=== PATIENT | male | born 1975 | race Two or more races ===

== ENCOUNTER 2017-12-24 14:18 | Inpatient (IN) | payer MEDICAID ==
[~2017-12-24] VITALS: Ht 185.4 cm; Wt 158.8 kg
[2017-12-24] MEDS ORDERED: ALBUTEROL (0.083%) 2.5MG/3ML NEB HHN STA (14:51)
[2017-12-24] MEDS ORDERED: METHYLPREDNISOLONE SOD SUCC 125 MG/2 ML VIAL IV STA (14:51)
[2017-12-24 16:02] LABS: CHLORIDE 108 mEq/L (98-107)
[2017-12-24 16:07] LABS: EOSINOPHILS % 4.1 % (0.0-5.0); HEMATOCRIT. 47.3 % (42.0-52.0); HEMOGLOBIN. 15.8 g/dL (14.0-18.0); MEAN CORPUSCULAR HEMOGLOBIN 29.6 pg (28.0-32.0); MEAN CORPUSCULAR VOLUME 88.9 fL (80.0-94.0); MEAN PLATELET VOLUME 7.6 fl (7.4-10.4); MONOCYTES % 9.3 % (2.0-8.0); NEUTROPHILS % 66.6 % (40.0-76.0); PLATELET 263 x1000/uL (130-400); RED BLOOD CELL COUNT 5.33 mill/uL (4.7-6.1); RED CELL DISTRIBUTION WIDTH 14.2 % (11.6-14.6)
[2017-12-24] MEDS ORDERED: FUROSEMIDE 40MG/4ML VIAL IV ONE (16:30)
[2017-12-24] MEDS ORDERED: ENOXAPARIN 150MG/ML SYR SUBCUT ONE ×2 (16:30→19:00)
[2017-12-24] MEDS ORDERED: ASPIRIN 81MG TABLET PO ONE (16:30)
[2017-12-24] MEDS ORDERED: GUAIFENESIN 200MG/10ML SUGAR FREE UDC PO PRN (17:00)
[2017-12-24] MEDS ORDERED: LORAZEPAM 0.5MG TABLET PO PRN (17:00)
[2017-12-24] MEDS ORDERED: CLONIDINE 0.1MG TABLET PO PRN (17:00)
[2017-12-24] MEDS ORDERED: MAGNESIUM/ALUMINUM HYDROXIDE/SIMETHICONE 30ML UDC PO PRN (17:00)
[2017-12-24] MEDS ORDERED: ONDANSETRON HCL 4MG/2ML INJ IV PRN (17:00)
[2017-12-24] MEDS ORDERED: DOCUSATE SODIUM 100MG CAPSULE PO PRN (17:00)
[2017-12-24] MEDS ORDERED: IPRATROPIUM/ALBUTEROL 0.5-3(2.5)MG/3ML NEB INH PRN (17:00)
[2017-12-24] MEDS ORDERED: NITROGLYCERIN 0.4MG TABLET SL SL PRN (17:00)
[2017-12-24] MEDS ORDERED: ACETAMINOPHEN 325MG TABLET PO PRN (17:00)
[2017-12-24] MEDS ORDERED: KETOROLAC 15MG/ML VIAL IV PRN (17:14)
[2017-12-24 19:33] LABS: ETHANOL BLOOD < 10 mg/dL
[2017-12-24 19:36] LABS: HDL CHOLESTEROL 44 mg/dL (40-59); LDL CHOLESTEROL 113 mg/dL (5-100)
[2017-12-24] MEDS ORDERED: NA PHOS,M-B/NA PHOS,DI-BA ENEMA 118ML PR PRN (21:00)
[2017-12-24] MEDS ORDERED: ZOLPIDEM TARTRATE 5MG TABLET PO PRN (21:00)
[2017-12-24 22:21] VITALS: BP 129/89
[2017-12-25] MEDS: DILTIAZEM HCL 60MG TABLET PO SCH ×2 (06:00)
[2017-12-25 06:46] LABS: CREATINE KINASE MB FRACTION 3.9 ng/mL (0.5-3.6)
[2017-12-25] MEDS ORDERED: ASPIRIN 325MG EC TABLET PO SCH (09:00)
[2017-12-25] MEDS ORDERED: FUROSEMIDE 40MG/4ML VIAL IVP SCH (09:00)
[2017-12-25] MEDS ORDERED: FAMOTIDINE 20MG TABLET PO SCH (09:00)
[2017-12-25] MEDS ORDERED: RIVAROXABAN 20 MG TABLET PO SCH (17:00)
== END 2017-12-25 12:39 | disposition home or self-care (01) | DRG 133 ==
LOC: ER 14:56 → 7WST 16:46 → EDBEDREQ 16:50 → EDBEDREQTM 16:50 → EDBEDREQ 17:02 → ENRESERV 17:42
PROVIDERS: ADMIT Internal Medicine; ATTEND Internal Medicine
DX: J96.00 Acute respiratory failure, unspecified whether with hypoxia or hypercapnia (principal); N17.0 Acute kidney failure with tubular necrosis; I50.43 Acute on chronic combined systolic (congestive) and diastolic (congestive) heart failure; E46 Unspecified protein-calorie malnutrition; I48.91 Unspecified atrial fibrillation; F17.210 Nicotine dependence, cigarettes, uncomplicated; E66.01 Morbid (severe) obesity due to excess calories; I11.0 Hypertensive heart disease with heart failure; I50.9 Heart failure, unspecified; J44.9 Chronic obstructive pulmonary disease, unspecified; Z79.01 Long term (current) use of anticoagulants; Z68.42 Body mass index [BMI] 45.0-49.9, adult
CPT/HCPCS: 36415; 71045; 80061; 82550; 82553; 83036; 83880; 84484; 93005; 93306; 93970; 94640; 96372; 96374; 96375; 99291; G0482; J1650; J1940; J2930; J7611; J7620

== ENCOUNTER 2017-12-26 17:53 | Inpatient (IN) | payer MEDICAID ==
[~2017-12-26] VITALS: Ht 177.8 cm; Wt 177.8 kg
[2017-12-26 18:23] LABS: BG BASE EXCESS 1.3 mmol/L (-2.0-2.0); BG BILEVEL POS AIRWAY PRESSURE 18/5; BG CARBOXYHEMOGLOBIN 3.5 % (0.5-1.5); BG DEOXYHEMOGLOBIN 0.2 % (0.0-5.0); BG HCO3 ACT 27.6 mmol/L (22.0-26.0); BG METHEMOGLOBIN 0.5 % (0.0-1.5); BG OXYGEN SATURATION 99.8 % (92.0-98.5); BG OXYHEMOGLOBIN 95.8 % (94.0-97.0); BG PCO2 49.1 mmHg (35.0-45.0); BG PH 7.368 (7.350-7.450); BG PO2 580.6 mmHg (75.0-100.0); BG SAMPLE SITE RIGHT RADIAL; BG TOTAL HEMOGLOBIN 17.8 g/dL (12.0-18.0); BG VENT MODE MASK - BIPAP; BG VENT RATE 16 set
[2017-12-26 18:42] LABS: CHLORIDE 104 mEq/L (98-107); PROTHROMBIN TIME 10.2 sec (9.1-11.1)
[2017-12-26 18:43] LABS: BASOPHILS % 0.9 % (0.0-2.0); EOSINOPHILS % 0.5 % (0.0-5.0); HEMATOCRIT. 51.8 % (42.0-52.0); HEMOGLOBIN. 17.5 g/dL (14.0-18.0); LYMPHOCYTES % 20.1 % (20.0-50.0); MEAN CORPUSCULAR HEMOGLOBIN 29.9 pg (28.0-32.0); MEAN CORPUSCULAR VOLUME 88.5 fL (80.0-94.0); MEAN PLATELET VOLUME 7.8 fl (7.4-10.4); MONOCYTES % 7.5 % (2.0-8.0); PLATELET 312 x1000/uL (130-400); RED BLOOD CELL COUNT 5.85 mill/uL (4.7-6.1); RED CELL DISTRIBUTION WIDTH 14.4 % (11.6-14.6)
[2017-12-26] MEDS ORDERED: ASPIRIN 81MG TABLET PO ONE (19:15)
[2017-12-26] MEDS ORDERED: FUROSEMIDE 40MG/4ML VIAL IVP ONE (19:15)
[2017-12-26] MEDS ORDERED: ACETAMINOPHEN 325MG TABLET PO PRN (22:00)
[2017-12-26] MEDS ORDERED: DIPHENHYDRAMINE 50MG/ML VIAL IV PRN (22:00)
[2017-12-26] MEDS ORDERED: LORAZEPAM 0.5MG TABLET PO PRN (22:00)
[2017-12-26] MEDS ORDERED: KETOROLAC 15MG/ML VIAL IV PRN (22:00)
[2017-12-26] MEDS ORDERED: CLONIDINE 0.1MG TABLET PO PRN (22:00)
[2017-12-26] MEDS ORDERED: IPRATROPIUM/ALBUTEROL 0.5-3(2.5)MG/3ML NEB INH PRN (22:00)
[2017-12-26] MEDS ORDERED: ONDANSETRON HCL 4MG/2ML INJ IV PRN (22:00)
[2017-12-26] MEDS ORDERED: MAGNESIUM/ALUMINUM HYDROXIDE/SIMETHICONE 30ML UDC PO PRN (22:00)
[2017-12-26 23:12] VITALS: BP 155/90
[2017-12-27] VITALS (8 sets, daily range): BP systolic 119–154; BP diastolic 84–91
[2017-12-27] MEDS: DILTIAZEM HCL 60MG TABLET PO SCH ×5 (00:55→22:47)
[2017-12-27] MEDS: DEXT 5%/0.45% NACL 1000ML 1,000 ML IV SCH ×2 (00:55→10:00)
[2017-12-27] MEDS ORDERED: RIVA20TA PO (04:07)
[2017-12-27] MEDS: SODIUM CHLORIDE 0.9% INJ 3ML FLUSH IVF SCH ×3 (05:59→22:00)
[2017-12-27 06:20] LABS: BASOPHILS % 0.8 % (0.0-2.0); EOSINOPHILS % 1.5 % (0.0-5.0); HEMATOCRIT. 48.9 % (42.0-52.0); HEMOGLOBIN. 16.4 g/dL (14.0-18.0); LYMPHOCYTES % 26.1 % (20.0-50.0); MEAN CORPUSCULAR HEMOGLOBIN 29.9 pg (28.0-32.0); MEAN PLATELET VOLUME 7.6 fl (7.4-10.4); MONOCYTES % 9.6 % (2.0-8.0); PLATELET 280 x1000/uL (130-400); RED BLOOD CELL COUNT 5.49 mill/uL (4.7-6.1); RED CELL DISTRIBUTION WIDTH 14.4 % (11.6-14.6)
[2017-12-27] MEDS: FAMOTIDINE 20MG TABLET PO SCH ×2 (09:00→22:47)
[2017-12-27] MEDS: RIVAROXABAN 20 MG TABLET PO SCH (17:00)
[2017-12-27] MEDS: IPRATROPIUM/ALBUTEROL 0.5-3(2.5)MG/3ML NEB HHN SCH (20:20)
[2017-12-28] VITALS (11 sets, daily range): BP systolic 120–186; BP diastolic 61–112
[2017-12-28] MEDS: IPRATROPIUM/ALBUTEROL 0.5-3(2.5)MG/3ML NEB HHN SCH ×4 (01:11→20:21)
[2017-12-28 03:44] LABS: CLARITY URINE CLEAR (CLEAR); COLOR URINE YELLOW (YELLOW); KETONES URINE NEGATIVE (NEGATIVE); LEUKOCYTE ESTERASE URINE NEGATIVE (NEGATIVE); NITRITE URINE NEGATIVE (NEGATIVE); OCCULT BLOOD URINE TRACE (NEGATIVE); PH URINE 5.5 (4.5-8.0); PROTEIN URINE 3+ (NEGATIVE); SPECIFIC GRAVITY URINE 1.015 (1.005-1.030); UROBILINOGEN URINE 0.2 E.U./dL (0.2-1.0)
[2017-12-28 04:10] LABS: *AMPHETAMINES SCREEN URINE NEGATIVE (NEGATIVE); *BARBITURATES SCREEN URINE NEGATIVE (NEGATIVE); *COCAINE SCREEN URINE NEGATIVE (NEGATIVE); CANNABINOID URINE SCREEN PRESUMTIVE POSITIVE (NEGATIVE); METHADONE URINE SCREEN NEGATIVE (NEGATIVE); OPIATES URINE SCREEN NEGATIVE (NEGATIVE); PHENCYCLIDINE URINE SCREEN NEGATIVE (NEGATIVE)
[2017-12-28 04:11] LABS: *BENZODIAZEPINES SCREEN URINE NEGATIVE (NEGATIVE)
[2017-12-28] MEDS: DILTIAZEM HCL 60MG TABLET PO SCH ×4 (05:56→23:55)
[2017-12-28] MEDS: SODIUM CHLORIDE 0.9% INJ 3ML FLUSH IVF SCH ×4 (05:56→20:44)
[2017-12-28] MEDS: FAMOTIDINE 20MG TABLET PO SCH ×2 (08:08→20:44)
[2017-12-28] MEDS: RIVAROXABAN 20 MG TABLET PO SCH (18:17)
[2017-12-29 01:04] VITALS: BP 131/81
[2017-12-29] MEDS: DILTIAZEM HCL 60MG TABLET PO SCH ×3 (01:10→11:52)
[2017-12-29] MEDS: IPRATROPIUM/ALBUTEROL 0.5-3(2.5)MG/3ML NEB HHN SCH (01:46)
[2017-12-29 05:30] VITALS: BP 121/71
[2017-12-29] MEDS: SODIUM CHLORIDE 0.9% INJ 3ML FLUSH IVF SCH ×2 (05:32→13:57)
[2017-12-29] MEDS ORDERED: POTASSIUM CHLORIDE 20MEQ TABLET SR PO SCH (09:00)
[2017-12-29] MEDS: FAMOTIDINE 20MG TABLET PO SCH (09:23)
[2017-12-29 10:00] VITALS: BP 140/82
[2017-12-29 12:00] VITALS: BP 133/85
[2017-12-29] MEDS ORDERED: GUAIFENESIN 600MG ER TABLET PO SCH (12:30)
[2017-12-29 14:35] VITALS: BP 133/65
== END 2017-12-29 15:55 | disposition home or self-care (01) | DRG 140 ==
LOC: ER 17:53 → 5EST 19:18 → EDBEDREQ 19:42 → EDBEDREQTM 19:42 → EDBEDREQSVC 19:42
PROVIDERS: ADMIT Internal Medicine; ATTEND Internal Medicine
PROC: 5A09457 Assistance with Respiratory Ventilation, 24-96 Consecutive Hours, Continuous Positive Airway Pressure (ICD-10-PCS; principal; 2017-12-26)
PROC: 5A09357 Assistance with Respiratory Ventilation, Less than 24 Consecutive Hours, Continuous Positive Airway Pressure (ICD-10-PCS; 2017-12-28)
PROC: 5A09357 Assistance with Respiratory Ventilation, Less than 24 Consecutive Hours, Continuous Positive Airway Pressure (ICD-10-PCS; 2017-12-29)
DX: J44.1 Chronic obstructive pulmonary disease with (acute) exacerbation (principal); J96.00 Acute respiratory failure, unspecified whether with hypoxia or hypercapnia; I50.33 Acute on chronic diastolic (congestive) heart failure; N17.9 Acute kidney failure, unspecified; I13.0 Hypertensive heart and chronic kidney disease with heart failure and stage 1 through stage 4 chronic kidney disease, or unspecified chronic kidney disease; E66.2 Morbid (severe) obesity with alveolar hypoventilation; N18.9 Chronic kidney disease, unspecified; F12.90 Cannabis use, unspecified, uncomplicated; I48.92 Unspecified atrial flutter; I48.2 Chronic atrial fibrillation; M10.9 Gout, unspecified; Z79.01 Long term (current) use of anticoagulants; Z91.14 Patient's other noncompliance with medication regimen; Z87.891 Personal history of nicotine dependence
CPT/HCPCS: 36415; 36600; 71045; 80048; 80305; 82375; 82805; 83605; 83735; 83880; 84484; 84550; 93005; 94640; 94660; 96374; 99291; J1940; J7620

== ENCOUNTER 2018-03-02 15:17 | Inpatient (IN) | payer MEDICAID ==
[~2018-03-02] VITALS: Ht 365.8 cm; Wt 181.0 kg
[~2018-03-02 15:17] MED LIST: RIVA20TA PO
[2018-03-02] MEDS ORDERED: IPRATROPIUM BROMIDE (0.02%) 0.5MG/2.5ML NEB HHN STA (15:34)
[2018-03-02] MEDS ORDERED: ALBUTEROL (0.083%) 2.5MG/3ML NEB HHN STA (15:34)
[2018-03-02 16:23] LABS: EOSINOPHILS % 3.4 % (0.0-5.0); HEMATOCRIT. 52.7 % (42.0-52.0); HEMOGLOBIN. 17.1 g/dL (14.0-18.0); LYMPHOCYTES % 17.5 % (20.0-50.0); MEAN CORPUSCULAR HEMOGLOBIN 29.1 pg (28.0-32.0); MEAN CORPUSCULAR VOLUME 89.6 fL (80.0-94.0); MEAN PLATELET VOLUME 7.8 fl (7.4-10.4); MONOCYTES % 9.5 % (2.0-8.0); NEUTROPHILS % 68.6 % (40.0-76.0); PLATELET 230 x1000/uL (130-400); RED BLOOD CELL COUNT 5.88 mill/uL (4.7-6.1); RED CELL DISTRIBUTION WIDTH 14.2 % (11.6-14.6)
[2018-03-02 16:28] LABS: CHLORIDE 110 mEq/L (98-107)
[2018-03-02] MEDS ORDERED: PREDNISONE 20MG TABLET PO ONE (16:30)
[2018-03-02] MEDS ORDERED: LORAZEPAM 2MG/ML CPJ IV ONE (19:45)
[2018-03-03] MEDS: IPRATROPIUM/ALBUTEROL 0.5-3(2.5)MG/3ML NEB HHN SCH (00:45)
[2018-03-03] MEDS ORDERED: IPRATROPIUM/ALBUTEROL 0.5-3(2.5)MG/3ML NEB HHN PRN (09:00)
[2018-03-03] MEDS ORDERED: GUAIFENESIN-DM 200MG-20MG/10ML UDC PO PRN (09:00)
[2018-03-03 09:25] VITALS: BP 118/72
[2018-03-03 11:08] LABS: BASOPHILS % 0.5 % (0.0-2.0); EOSINOPHILS % 0.5 % (0.0-5.0); HEMATOCRIT. 51.3 % (42.0-52.0); HEMOGLOBIN. 16.8 g/dL (14.0-18.0); LYMPHOCYTES % 13.1 % (20.0-50.0); MEAN CORPUSCULAR HEMOGLOBIN 29.2 pg (28.0-32.0); MEAN PLATELET VOLUME 7.6 fl (7.4-10.4); MONOCYTES % 5.2 % (2.0-8.0); NEUTROPHILS % 80.7 % (40.0-76.0); PLATELET 230 x1000/uL (130-400); RED BLOOD CELL COUNT 5.77 mill/uL (4.7-6.1); RED CELL DISTRIBUTION WIDTH 14.1 % (11.6-14.6)
[2018-03-03] MEDS: METHYLPREDNISOLONE SOD SUCC 40 MG/ML VIAL IV SCH ×2 (11:59→18:00)
[2018-03-03] MEDS ORDERED: MONTELUKAST SODIUM 10MG TABLET PO SCH (17:00)
[2018-03-03] MEDS ORDERED: RIVAROXABAN 20 MG TABLET PO SCH (17:00)
[2018-03-03] MEDS: NICOTINE 7MG PATCH TD SCH (17:15)
[2018-03-03] MEDS ORDERED: ACETAMINOPHEN 325MG TABLET PO PRN (17:15)
[2018-03-03] MEDS ORDERED: ONDANSETRON HCL 4MG/2ML INJ IV PRN (17:15)
[2018-03-03] MEDS: AZITHROMYCIN 500 MG TABLET PO SCH (18:24)
[2018-03-04 00:22] VITALS: BP 130/89
[2018-03-04] MEDS: METHYLPREDNISOLONE SOD SUCC 40 MG/ML VIAL IV SCH ×2 (02:00→10:00)
[2018-03-04 04:00] VITALS: BP 122/90
[2018-03-04] MEDS: IPRATROPIUM/ALBUTEROL 0.5-3(2.5)MG/3ML NEB HHN SCH (08:47)
[2018-03-04] MEDS: AZITHROMYCIN 500 MG TABLET PO SCH (09:00)
[2018-03-04] MEDS: NICOTINE 7MG PATCH TD SCH (09:00)
[2018-03-05] MEDS ORDERED: LURA120T MT (18:30)
[2018-03-05] MEDS ORDERED: TRAZ-213 MT (18:32)
[2018-03-05] MEDS ORDERED: METO-396 MT (18:32)
[2018-03-05] MEDS ORDERED: FURO-151 MT (18:32)
[2018-03-05] MEDS ORDERED: ASPI-1159 MT (18:32)
== END 2018-03-04 11:37 | disposition home or self-care (01) | DRG 133 ==
LOC: ER 15:17 → 6WST 19:36 → EDBEDREQTM 19:40 → EDBEDREQ 19:40 → ENRESERV 03-03 08:52
PROVIDERS: ADMIT Internal Medicine; ATTEND Internal Medicine
DX: J96.00 Acute respiratory failure, unspecified whether with hypoxia or hypercapnia (principal); E87.8 Other disorders of electrolyte and fluid balance, not elsewhere classified; J45.901 Unspecified asthma with (acute) exacerbation; E44.1 Mild protein-calorie malnutrition; E66.01 Morbid (severe) obesity due to excess calories; I13.0 Hypertensive heart and chronic kidney disease with heart failure and stage 1 through stage 4 chronic kidney disease, or unspecified chronic kidney disease; I50.9 Heart failure, unspecified; I48.91 Unspecified atrial fibrillation; I25.10 Atherosclerotic heart disease of native coronary artery without angina pectoris; Z79.01 Long term (current) use of anticoagulants; Z95.5 Presence of coronary angioplasty implant and graft; N18.3 Chronic kidney disease, stage 3 (moderate); Z71.6 Tobacco abuse counseling; Z71.3 Dietary counseling and surveillance; F17.200 Nicotine dependence, unspecified, uncomplicated; Z68.1 Body mass index [BMI] 19.9 or less, adult
CPT/HCPCS: 36415; 71045; 80048; 83880; 84484; 93005; 94640; 94660; 99285; J2060; J2920; J7512; J7611; J7620

== ENCOUNTER 2018-03-05 14:23 | Inpatient (IN) | payer MEDICAID ==
[~2018-03-05] VITALS: Ht 182.9 cm; Wt 181.0 kg
[2018-03-05] MEDS ORDERED: METHYLPREDNISOLONE SOD SUCC 125 MG/2 ML VIAL IV STA (14:26)
[2018-03-05] MEDS ORDERED: LORAZEPAM 2MG/ML CPJ IV ONE (14:30)
[2018-03-05] MEDS ORDERED: ASPIRIN 81MG TABLET PO ONE (14:30)
[2018-03-05] MEDS ORDERED: LEVOFLOXACIN 750MG PREMIX 150 ML IV ONE (14:30)
[2018-03-05] MEDS ORDERED: IPRATROPIUM/ALBUTEROL 0.5-3(2.5)MG/3ML NEB HHN ONE (14:30)
[2018-03-05 15:26] LABS: BASOPHILS % 1.1 % (0.0-2.0); EOSINOPHILS % 1.6 % (0.0-5.0); HEMATOCRIT. 52.3 % (42.0-52.0); HEMOGLOBIN. 17.1 g/dL (14.0-18.0); LYMPHOCYTES % 23.5 % (20.0-50.0); MEAN CORPUSCULAR HEMOGLOBIN 29.4 pg (28.0-32.0); MEAN CORPUSCULAR VOLUME 89.6 fL (80.0-94.0); MEAN PLATELET VOLUME 7.9 fl (7.4-10.4); MONOCYTES % 9.1 % (2.0-8.0); NEUTROPHILS % 64.7 % (40.0-76.0); PLATELET 249 x1000/uL (130-400); RED BLOOD CELL COUNT 5.84 mill/uL (4.7-6.1)
[2018-03-05 15:34] LABS: CHLORIDE 108 mEq/L (98-107)
[2018-03-05] MEDS ORDERED: LIDOCAINE HCL/PF 1% 2ML VIAL ONE (15:35)
[2018-03-05 15:37] LABS: BG BASE EXCESS -2.9 mmol/L (-2.0-2.0); BG BILEVEL POS AIRWAY PRESSURE 15/4; BG CARBOXYHEMOGLOBIN 2.9 % (0.5-1.5); BG DEOXYHEMOGLOBIN 0.3 % (0.0-5.0); BG HCO3 ACT 23.1 mmol/L (22.0-26.0); BG METHEMOGLOBIN 0.4 % (0.0-1.5); BG OXYGEN SATURATION 99.7 % (92.0-98.5); BG OXYHEMOGLOBIN 96.4 % (94.0-97.0); BG PCO2 44.8 mmHg (35.0-45.0); BG PH 7.331 (7.350-7.450); BG SAMPLE SITE RIGHT RADIAL; BG TOTAL HEMOGLOBIN 16.7 g/dL (12.0-18.0); BG VENT MODE MASK - BIPAP; BG VENT RATE 14 set
[2018-03-05 15:39] LABS: ETHANOL BLOOD < 10 mg/dL
[2018-03-05 15:44] LABS: CREATINE KINASE 251 IU/L (39-308)
[2018-03-05 15:55] LABS: CLARITY URINE CLEAR (CLEAR); COLOR URINE YELLOW (YELLOW); KETONES URINE NEGATIVE (NEGATIVE); LEUKOCYTE ESTERASE URINE NEGATIVE (NEGATIVE); NITRITE URINE NEGATIVE (NEGATIVE); OCCULT BLOOD URINE TRACE (NEGATIVE); PROTEIN URINE 2+ (NEGATIVE); SPECIFIC GRAVITY URINE 1.009 (1.005-1.030); UROBILINOGEN URINE 0.2 E.U./dL (0.2-1.0)
[2018-03-05 16:17] LABS: *AMPHETAMINES SCREEN URINE NEGATIVE (NEGATIVE); *BARBITURATES SCREEN URINE NEGATIVE (NEGATIVE); *BENZODIAZEPINES SCREEN URINE NEGATIVE (NEGATIVE); *COCAINE SCREEN URINE NEGATIVE (NEGATIVE)
[2018-03-05 16:18] LABS: CANNABINOID URINE SCREEN PRESUMTIVE POSITIVE (NEGATIVE); METHADONE URINE SCREEN NEGATIVE (NEGATIVE); OPIATES URINE SCREEN NEGATIVE (NEGATIVE); PHENCYCLIDINE URINE SCREEN NEGATIVE (NEGATIVE)
[2018-03-05 16:43] LABS: INR 1.1; PARTIAL THROMBOPLASTIN TIME 33.1 sec (23.4-31.0); PROTHROMBIN TIME 10.8 sec (9.1-11.1)
[2018-03-05 18:00] VITALS: BP 141/83
[2018-03-05] MEDS ORDERED: LURA120T MT (18:30)
[2018-03-05] MEDS ORDERED: TRAZ-213 MT (18:32)
[2018-03-05] MEDS ORDERED: ASPI-1159 MT (18:32)
[2018-03-05] MEDS ORDERED: METO-396 MT (18:32)
[2018-03-05] MEDS ORDERED: FURO-151 MT (18:32)
[2018-03-05 20:00] VITALS: BP 124/75
[2018-03-05] MEDS ORDERED: METHYLPREDNISOLONE SOD SUCC 40 MG/ML VIAL IV SCH (21:15)
[2018-03-05] MEDS ORDERED: IPRATROPIUM/ALBUTEROL 0.5-3(2.5)MG/3ML NEB HHN PRN ×2 (21:15→21:47)
[2018-03-05] MEDS ORDERED: ALBUTEROL (0.083%) 2.5MG/3ML NEB HHN PRN (21:30)
[2018-03-05] MEDS: TRAZODONE HCL 100MG TABLET PO SCH (21:57)
[2018-03-05] MEDS: METHYLPREDNISOLONE SOD SUCC 40 MG/ML VIAL IV SCH (21:58)
[2018-03-05] MEDS: LORAZEPAM 2MG/ML CPJ IM PRN (21:59)
[2018-03-05] MEDS ORDERED: NON FORMULARY PATIENT HOME MED XX SCH ×2 (22:00)
[2018-03-06] MEDS ORDERED: ALBUTEROL (0.083%) 2.5MG/3ML NEB HHN SCH
[2018-03-06] MEDS: BUDESONIDE 0.5MG/2ML NEB HHN SCH ×2 (01:15→01:41)
[2018-03-06] MEDS: IPRATROPIUM/ALBUTEROL 0.5-3(2.5)MG/3ML NEB HHN SCH ×5 (01:15→20:50)
[2018-03-06 04:47] VITALS: BP 122/75
[2018-03-06] MEDS: METHYLPREDNISOLONE SOD SUCC 40 MG/ML VIAL IV SCH ×3 (06:01→22:13)
[2018-03-06] MEDS: METOPROLOL TARTRATE 25MG TABLET PO SCH (08:49)
[2018-03-06] MEDS ORDERED: FLUTICASONE/VILANTEROL 200-25 BLST.W.DEV ORI SCH (09:00)
[2018-03-06] MEDS ORDERED: FUROSEMIDE 40MG TABLET PO SCH (09:00)
[2018-03-06] MEDS: LORAZEPAM 2MG/ML CPJ IM PRN ×3 (09:12→20:40)
[2018-03-06] MEDS ORDERED: CLONIDINE 0.1MG TABLET PO PRN (13:15)
[2018-03-06] MEDS ORDERED: GUAIFENESIN 200MG/10ML SUGAR FREE UDC PO PRN (13:15)
[2018-03-06] MEDS ORDERED: ACETAMINOPHEN 325MG TABLET PO PRN (13:15)
[2018-03-06] MEDS ORDERED: DOCUSATE SODIUM 100MG CAPSULE PO PRN (13:15)
[2018-03-06] MEDS ORDERED: IPRATROPIUM/ALBUTEROL 0.5-3(2.5)MG/3ML NEB INH PRN (13:15)
[2018-03-06] MEDS ORDERED: MAGNESIUM/ALUMINUM HYDROXIDE/SIMETHICONE 30ML UDC PO PRN (13:15)
[2018-03-06] MEDS ORDERED: ONDANSETRON HCL 4MG/2ML INJ IV PRN (13:15)
[2018-03-06] MEDS: NICOTINE 14MG PATCH TD SCH (14:13)
[2018-03-06] MEDS: GUAIFENESIN 600MG ER TABLET PO SCH ×2 (14:14→22:16)
[2018-03-06] MEDS: CEFTRIAXONE 1 G PREMIX 50 ML IV SCH (15:00)
[2018-03-06] MEDS: LEVOFLOXACIN 500MG PREMIX 100 ML IV SCH (15:00)
[2018-03-06] MEDS: RIVAROXABAN 20 MG TABLET PO SCH (17:19)
[2018-03-06 20:00] VITALS: BP 118/79
[2018-03-06] MEDS: TRAZODONE HCL 100MG TABLET PO SCH (20:40)
[2018-03-06] MEDS ORDERED: TRAZODONE HCL 100MG TABLET PO SCH (21:00)
[2018-03-07] MEDS: IPRATROPIUM/ALBUTEROL 0.5-3(2.5)MG/3ML NEB HHN SCH ×6 (00:58→21:04)
[2018-03-07] MEDS: LORAZEPAM 2MG/ML CPJ IM PRN ×2 (03:47→14:19)
[2018-03-07 04:00] VITALS: BP 119/87
[2018-03-07] MEDS: METHYLPREDNISOLONE SOD SUCC 40 MG/ML VIAL IV SCH ×2 (06:11→17:05)
[2018-03-07] MEDS ORDERED: HALOPERIDOL LACTATE 5MG/ML VIAL IM PRN (06:45)
[2018-03-07 07:56] LABS: HEMATOCRIT. 49.3 % (42.0-52.0); HEMOGLOBIN. 16.2 g/dL (14.0-18.0); MEAN CORPUSCULAR HEMOGLOBIN 29.3 pg (28.0-32.0); MEAN CORPUSCULAR VOLUME 89.4 fL (80.0-94.0); MEAN PLATELET VOLUME 7.8 fl (7.4-10.4); PLATELET 244 x1000/uL (130-400); RED BLOOD CELL COUNT 5.51 mill/uL (4.7-6.1)
[2018-03-07] MEDS: NICOTINE 14MG PATCH TD SCH (08:39)
[2018-03-07] MEDS: METOPROLOL TARTRATE 25MG TABLET PO SCH (08:39)
[2018-03-07] MEDS: GUAIFENESIN 600MG ER TABLET PO SCH ×2 (08:41→21:33)
[2018-03-07] MEDS ORDERED: FUROSEMIDE 40MG/4ML VIAL IV SCH (09:00)
[2018-03-07] MEDS: FUROSEMIDE 40MG/4ML VIAL IV SCH (10:46)
[2018-03-07 10:53] LABS: CHLORIDE 107 mEq/L (98-107)
[2018-03-07 11:05] LABS: HDL CHOLESTEROL 46 mg/dL (40-59); LDL CHOLESTEROL 97 mg/dL (5-100)
[2018-03-07 11:07] LABS: T4 FREE 1.41 ng/dL (0.76-1.46)
[2018-03-07 12:15] VITALS: BP 116/84
[2018-03-07] MEDS: CEFTRIAXONE 1 G PREMIX 50 ML IV SCH (15:00)
[2018-03-07] MEDS: LEVOFLOXACIN 500MG PREMIX 100 ML IV SCH (15:57)
[2018-03-07 16:07] LABS: PLATELET ESTIMATE NORMAL
[2018-03-07 16:20] VITALS: BP 114/80
[2018-03-07] MEDS: RIVAROXABAN 20 MG TABLET PO SCH (17:05)
[2018-03-07 20:00] VITALS: BP 133/95
[2018-03-07] MEDS: TRAZODONE HCL 100MG TABLET PO SCH (21:33)
[2018-03-08] MEDS: IPRATROPIUM/ALBUTEROL 0.5-3(2.5)MG/3ML NEB HHN SCH ×4 (01:02→11:57)
[2018-03-08 04:00] VITALS: BP 104/71
[2018-03-08 07:27] LABS: HEMATOCRIT. 49.5 % (42.0-52.0); HEMOGLOBIN. 16.1 g/dL (14.0-18.0); MEAN CORPUSCULAR HEMOGLOBIN 29.2 pg (28.0-32.0); MEAN CORPUSCULAR VOLUME 89.6 fL (80.0-94.0); PLATELET 227 x1000/uL (130-400); RED BLOOD CELL COUNT 5.52 mill/uL (4.7-6.1)
[2018-03-08 08:00] VITALS: BP 180/96
[2018-03-08] MEDS: METHYLPREDNISOLONE SOD SUCC 40 MG/ML VIAL IV SCH (09:00)
[2018-03-08] MEDS: FUROSEMIDE 40MG/4ML VIAL IV SCH (09:00)
[2018-03-08] MEDS: NICOTINE 14MG PATCH TD SCH (09:00)
[2018-03-08] MEDS: GUAIFENESIN 600MG ER TABLET PO SCH (09:45)
[2018-03-08 11:05] LABS: CHLORIDE 104 mEq/L (98-107)
[2018-03-08 11:20] LABS: AMYLASE 142 IU/L (25-115)
[2018-03-08 11:25] LABS: PHOSPHORUS 4.9 mg/dL (2.5-4.9)
[2018-03-08 12:00] VITALS: BP 127/81
[2018-03-08 13:55] VITALS: BP 127/81
[2018-03-08 17:36] LABS: PLATELET ESTIMATE NORMAL
== END 2018-03-08 14:05 | disposition home or self-care (01) | DRG 194 ==
LOC: ER 14:30 → 5WST 15:43 → EDBEDREQ 15:44 → ENRESERV 16:57
PROVIDERS: ADMIT Internal Medicine; ATTEND Internal Medicine
PROC: 5A09357 Assistance with Respiratory Ventilation, Less than 24 Consecutive Hours, Continuous Positive Airway Pressure (ICD-10-PCS; principal; 2018-03-05)
PROC: 5A09357 Assistance with Respiratory Ventilation, Less than 24 Consecutive Hours, Continuous Positive Airway Pressure (ICD-10-PCS; 2018-03-06)
PROC: 5A09357 Assistance with Respiratory Ventilation, Less than 24 Consecutive Hours, Continuous Positive Airway Pressure (ICD-10-PCS; 2018-03-07)
PROC: 5A09357 Assistance with Respiratory Ventilation, Less than 24 Consecutive Hours, Continuous Positive Airway Pressure (ICD-10-PCS; 2018-03-08)
DX: I13.0 Hypertensive heart and chronic kidney disease with heart failure and stage 1 through stage 4 chronic kidney disease, or unspecified chronic kidney disease (principal); J96.20 Acute and chronic respiratory failure, unspecified whether with hypoxia or hypercapnia; K85.90 Acute pancreatitis without necrosis or infection, unspecified; I27.20 Pulmonary hypertension, unspecified; N17.9 Acute kidney failure, unspecified; J44.1 Chronic obstructive pulmonary disease with (acute) exacerbation; J45.901 Unspecified asthma with (acute) exacerbation; E66.2 Morbid (severe) obesity with alveolar hypoventilation; N18.3 Chronic kidney disease, stage 3 (moderate); K76.0 Fatty (change of) liver, not elsewhere classified; I48.92 Unspecified atrial flutter; I48.2 Chronic atrial fibrillation; I50.43 Acute on chronic combined systolic (congestive) and diastolic (congestive) heart failure; N39.0 Urinary tract infection, site not specified; F17.210 Nicotine dependence, cigarettes, uncomplicated; F12.90 Cannabis use, unspecified, uncomplicated; M10.9 Gout, unspecified; I25.118 Atherosclerotic heart disease of native coronary artery with other forms of angina pectoris; J06.9 Acute upper respiratory infection, unspecified; Z95.5 Presence of coronary angioplasty implant and graft; Z91.19 Patient's noncompliance with other medical treatment and regimen; Z71.6 Tobacco abuse counseling; Z71.3 Dietary counseling and surveillance
CPT/HCPCS: 36415; 36600; 71045; 76700; 80061; 80305; 82150; 82375; 82550; 82805; 83605; 83735; 83880; 84100; 84439; 84443; 84484; 84550; 93005; 93306; 93970; 96365; 96375; 99291; C1893; G0482; J0696; J1630; J1940; J1956; J2060; J2920; J2930; J3490; J7050; J7620; J7626

== ENCOUNTER 2018-03-24 19:22 | Emergency (ER) | payer MEDICAID ==
[~2018-03-24] VITALS: Ht 177.8 cm; Wt 146.0 kg
[~2018-03-24 19:22] MED LIST changes: +ASPI-1159 MT; +FURO-151 MT; +LURA120T MT; +METO-396 MT; +TRAZ-213 MT
[2018-03-24 19:40] VITALS: BP 115/72
== END 2018-03-24 22:45 | disposition left against medical advice (07) ==
LOC: ER 19:22
DX: Z53.21 Procedure and treatment not carried out due to patient leaving prior to being seen by health care provider (principal)

== ENCOUNTER 2018-04-06 10:32 | Inpatient (IN) | payer MEDICAID ==
[~2018-04-06] VITALS: Ht 185.4 cm; Wt 185.5 kg
[2018-04-06 11:34] LABS: HEMOGLOBIN. 11.9 g/dL (14.0-18.0); MEAN CORPUSCULAR HEMOGLOBIN 29.6 pg (28.0-32.0); MEAN CORPUSCULAR VOLUME 89.6 fL (80.0-94.0); MEAN PLATELET VOLUME 7.6 fl (7.4-10.4); PLATELET 232 x1000/uL (130-400); RED BLOOD CELL COUNT 4.01 mill/uL (4.7-6.1); RED CELL DISTRIBUTION WIDTH 14.2 % (11.6-14.6)
[2018-04-06 11:39] LABS: CHLORIDE 111 mEq/L (98-107)
[2018-04-06 12:55] LABS: PLATELET ESTIMATE NORMAL
[2018-04-06] MEDS ORDERED: VANCOMYCIN 1 G PREMIX 200 ML IV ONE (13:00)
[2018-04-06] MEDS ORDERED: PIPERACILLIN/TAZ 3.375G PREMIX 50 ML IV ONE (13:00)
[2018-04-06 13:57] LABS: CLARITY URINE CLEAR (CLEAR); COLOR URINE YELLOW (YELLOW); KETONES URINE NEGATIVE (NEGATIVE); LEUKOCYTE ESTERASE URINE NEGATIVE (NEGATIVE); NITRITE URINE NEGATIVE (NEGATIVE); OCCULT BLOOD URINE NEGATIVE (NEGATIVE); PROTEIN URINE NEGATIVE (NEGATIVE); UROBILINOGEN URINE 0.2 E.U./dL (0.2-1.0)
[2018-04-06] MEDS ORDERED: SODIUM CHLORIDE 0.9% 1000ML BAG (SEPSIS BOLUS) IV ONE (15:30)
[2018-04-06] MEDS ORDERED: ONDANSETRON HCL 4MG/2ML INJ IV PRN (17:15)
[2018-04-06] MEDS ORDERED: CLONIDINE 0.1MG TABLET PO PRN (17:15)
[2018-04-06] MEDS ORDERED: NA PHOS,M-B/NA PHOS,DI-BA ENEMA 118ML PR PRN (17:15)
[2018-04-06] MEDS ORDERED: IPRATROPIUM/ALBUTEROL 0.5-3(2.5)MG/3ML NEB INH PRN (17:15)
[2018-04-06] MEDS ORDERED: DOCUSATE SODIUM 100MG CAPSULE PO PRN (17:15)
[2018-04-06] MEDS ORDERED: ACETAMINOPHEN 325MG TABLET PO PRN (17:15)
[2018-04-06] MEDS ORDERED: GUAIFENESIN 200MG/10ML SUGAR FREE UDC PO PRN (17:15)
[2018-04-06] MEDS ORDERED: HYDROCODONE/ACETAMINOPHEN 5/325MG TABLET PO PRN (17:15)
[2018-04-06 18:04] VITALS: BP 108/59
[2018-04-06] MEDS ORDERED: HALOPERIDOL LACTATE 5MG/ML VIAL IM SCH (19:00)
[2018-04-06 20:00] VITALS: BP 94/54
[2018-04-06] MEDS: IPRATROPIUM/ALBUTEROL 0.5-3(2.5)MG/3ML NEB INH SCH (21:10)
[2018-04-06 21:31] VITALS: BP 94/54
[2018-04-06 22:00] VITALS: BP 89/49
[2018-04-06] MEDS: FUROSEMIDE 40MG TABLET PO SCH (22:25)
[2018-04-07] VITALS: BP 89/61
[2018-04-07 02:00] VITALS: BP 94/60
[2018-04-07] MEDS: IPRATROPIUM/ALBUTEROL 0.5-3(2.5)MG/3ML NEB INH SCH (02:00)
[2018-04-07 04:01] VITALS: BP 98/62
[2018-04-07 05:56] VITALS: BP 106/71
[2018-04-07 06:58] LABS: CHLORIDE 114 mEq/L (98-107)
[2018-04-07 07:00] LABS: HEMATOCRIT. 33.1 % (42.0-52.0); HEMOGLOBIN. 10.9 g/dL (14.0-18.0); MEAN CORPUSCULAR HEMOGLOBIN 29.3 pg (28.0-32.0); MEAN CORPUSCULAR VOLUME 89.2 fL (80.0-94.0); MEAN PLATELET VOLUME 7.8 fl (7.4-10.4); PLATELET 203 x1000/uL (130-400); RED BLOOD CELL COUNT 3.71 mill/uL (4.7-6.1); RED CELL DISTRIBUTION WIDTH 14.3 % (11.6-14.6)
[2018-04-07 07:05] LABS: LDL CHOLESTEROL 43 mg/dL (5-100)
[2018-04-07 07:07] LABS: CREATINE KINASE 183 IU/L (39-308); HDL CHOLESTEROL 31 mg/dL (40-59)
[2018-04-07 07:10] LABS: CREATINE KINASE MB FRACTION 3.5 ng/mL (0.5-3.6)
[2018-04-07 08:00] VITALS: BP 123/72
[2018-04-07] MEDS ORDERED: AMLODIPINE 10MG TABLET PO SCH (09:00)
[2018-04-07 09:09] VITALS: BP 123/72
[2018-04-07] MEDS: FUROSEMIDE 40MG TABLET PO SCH (09:51)
[2018-04-07 14:17] LABS: PLATELET ESTIMATE NORMAL
[2018-04-07] MEDS ORDERED: RIVAROXABAN 20 MG TABLET PO SCH (18:30)
== END 2018-04-07 10:05 | disposition home or self-care (01) | DRG 194 ==
LOC: ER 10:32 → EDBEDREQ 14:04 → 3WST 15:52 → ENRESERV 16:04 → SUPCPDRO 16:59
PROVIDERS: ADMIT Hospitalist; ATTEND Hospitalist
DX: I11.0 Hypertensive heart disease with heart failure (principal); N17.9 Acute kidney failure, unspecified; D68.59 Other primary thrombophilia; E44.0 Moderate protein-calorie malnutrition; G90.8 Other disorders of autonomic nervous system; Z68.43 Body mass index [BMI] 50.0-59.9, adult; I48.91 Unspecified atrial fibrillation; I50.23 Acute on chronic systolic (congestive) heart failure; F17.210 Nicotine dependence, cigarettes, uncomplicated; F41.9 Anxiety disorder, unspecified; G47.30 Sleep apnea, unspecified; I25.10 Atherosclerotic heart disease of native coronary artery without angina pectoris; J44.9 Chronic obstructive pulmonary disease, unspecified; Z95.5 Presence of coronary angioplasty implant and graft; I25.2 Old myocardial infarction
CPT/HCPCS: 36415; 71045; 80061; 82550; 82553; 83605; 83880; 84145; 84484; 93005; 96365; 96366; 99285; J1630; J2543; J3370; J7030; J7620